=== PATIENT | male | born 1990 | race Caucasian/White ===

== ENCOUNTER 2016-09-12 18:44 | Emergency (ER) | payer OTHER, SELFPAY ==
[~2016-09-12] VITALS: Ht 195.6 cm; Wt 115.9 kg
[2016-09-12] MEDS ORDERED: ASPIRIN 81 MG CHEW TABLET PO ONE (19:15)
[2016-09-12] MEDS: IPRATROPIUM 0.5MG/ALBUTEROL 2.5MG INH SOL UD 3ML (DUONEB)(J7620) NEB PRN ×2 (19:27→19:28)
--- NOTE | 2016-09-12 19:37 | ECGEPIP ---
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
[2016-09-12 19:45] LABS: ALBUMIN/GLOBULIN RATIO 1.08 (1.00-1.93); ALKALINE PHOSPHATASE 93 U/L (45-117); ALT/SGPT 31 U/L (12-78); ANION GAP 7 MEQ/L (8-16); AST/SGOT 15 U/L (15-37); BILIRUBIN,DIRECT 0.1 MG/DL (0.0-0.2); BILIRUBIN,TOTAL 0.5 MG/DL (0.2-1.0); BLOOD UREA NITROGEN 16 MG/DL (7-18); CALCIUM LEVEL 9.2 MG/DL (8.5-10.1); CARBON DIOXIDE LEVEL 29 MEQ/L (21-32); CHLORIDE LEVEL 102 MEQ/L (98-107); CREATININE FOR GFR 1.13 MG/DL (0.70-1.30); GLOMERULAR FILTRATION RATE > 60.0 (>60); GLUCOSE, FASTING 112 MG/DL (70-105); POTASSIUM SERUM 3.8 MEQ/L (3.5-5.1); SODIUM LEVEL 138 MEQ/L (136-145); TOTAL PROTEIN 7.7 GM/DL (6.4-8.2)
[2016-09-12 19:57] LABS: MEAN CORPUSCULAR HEMOGLOBIN 30.3 pg (27.0-33.0); MEAN CORPUSCULAR VOLUME 82.8 fl (80.0-96.0); WHITE BLOOD COUNT 6.6 K/mm3 (4.0-10.0)
[2016-09-12 19:58] LABS: BASO % 1.1 % (0.0-1.0); EOS # 0.5 K/mm3 (0.0-0.50); EOS % 8.1 % (0.0-3.0); LARGE UNSTAINED CELL % 1.6 % (0.0-4.0); LYMPH % 30.5 % (24.0-44.0); MONO # 0.4 K/mm3 (0.0-0.8); MONO % 6.7 % (0.0-5.0); NEUTROPHILS # 3.4 K/mm3 (1.8-7.7); NEUTROPHILS % 52.1 % (36.0-66.0); PLATELET COUNT, AUTOMATED 252 k/mm3 (150-450); RED CELL DISTRIBUTION WIDTH 12.7 % (11.5-14.5)
[2016-09-12 19:59] LABS: BASO # 0.1 K/mm3 (0.0-0.2); LARGE UNSTAINED CELL # 0.1 K/mm3 (0.0-0.4)
[2016-09-12 20:00] LABS: MEAN CORPUSCULAR HGB CONC 36.6 g/dl (32.0-36.5)
[2016-09-12] MEDS ORDERED: ALBU17IN2 INH (20:07)
[2016-09-12] MEDS ORDERED: IBUP-1022 PO (20:07)
[2016-09-12 20:14] VITALS: BP 132/86
--- NOTE | 2016-09-13 02:14 | REP ---
Clinical: Chest pain . Comparison: 02/05/2005 . Technique: PA and lateral. Findings: The mediastinum and cardiac silhouette are normal. The lung weir are clear and without acute consolidation, effusion, or pneumothorax. The skeletal structures are intact and normal. Impression: 1. No acute cardiopulmonary process. Signed by Lorne Sanabria MD 09/13/2016 02:06 A
== END 2016-09-12 20:15 | disposition home or self-care (01) ==
LOC: M ED 18:44
DX: R09.1 Pleurisy (principal)

== ENCOUNTER → 2017-12-03 | Outpatient (CLI) | payer SELFPAY | LOC: M WUC 12:40 | DX: S90.32XA Contusion of left foot, initial encounter (principal) | CPT/HCPCS: 73630 ==

== ENCOUNTER 2018-02-07 15:12 | Emergency (ER) | payer SELFPAY ==
[~2018-02-07] VITALS: Ht 195.6 cm; Wt 118.2 kg
[~2018-02-07 15:12] MED LIST: ALBU17IN2 INH; IBUP-1022 PO
[2018-02-07 15:14] VITALS: BP 175/88
[2018-02-07] MEDS ORDERED: ACET-683 PO (15:18)
[2018-02-07] MEDS ORDERED: AUGM875T28 PO (15:42)
[2018-02-07] MEDS ORDERED: IBUP80TA PO (15:42)
[2018-02-07] MEDS ORDERED: IBUPROFEN 800 MG TAB PO ONE (15:45)
[2018-02-07] MEDS ORDERED: AUGMENTIN 875 MG TAB PO ONE (15:45)
== END 2018-02-07 15:56 | disposition home or self-care (01) ==
LOC: M ED 15:12
DX: K08.89 Other specified disorders of teeth and supporting structures (principal); K02.9 Dental caries, unspecified